=== PATIENT | male | born 1965 | race Caucasian/White ===

== ENCOUNTER 2016-07-03 07:31 | Day surgery (SDC) | payer BC ==
[~2016-07-03] VITALS: Ht 175.3 cm; Wt 81.1 kg
[~2016-07-03 07:31] MED LIST: ASPI-557 PO; EZET10TA PO; LIDOCAINE 1% (10mg/ml) 2ml SDV INJ ONE; LR 1,000 ML IV SCH; MULT-933 PO; OMEG1CAP79 PO; PROPOFOL 500mg 0 ML IV ONE
--- OUTSIDE RECORDS SUMMARY | 2016-07-03 07:35 | XMS REPORT ---
Author Author Zeus Estrada Organization Unknown Address [address], [place] [id number] Phone Care Team Providers Care Bailiff Name Role Phone Fer Wharton PP Unavailable Unavailable Reason for Referral No Reason for Referral was given. History of Present Illness No HPI available. Problems * Normal Routine History And Physical Adult (V70.0); (Active) * Deviated Nasal Septum (Acquired) (470); (Active) * Epistaxis (784.7); (Active) Medication * Mupirocin 2 % External Ointment; APPLY A SMALL AMOUNT WITH A COTTON SWAB TO AFFECTED NOSTRIL 2 TO 3 TIMES DAILY FOR 3 WEEKS; Start Date: 07/14/2012; End Date: (Active) * Multivitamins Oral Capsule; Start Date: 01/18/2010; End Date: 07/14/2012 ( Complete) * PredniSONE 20 MG Oral Tablet; TAKE 3 TABLETS FOR 2 DAYS, 2 TABLETS FOR 2 DAYS , 1 TABLET FOR 2 DAYS, ONE HALF TABLET FOR 2 DAYS; Start Date: 08/21/2011; End Date: 07/14/2012 (Complete) * Desoximetasone 0.25 % External Cream; APPLY SPARINGLY TWICE A DAY TO AFFECTED AREAS; Start Date: 08/21/2011; End Date: 07/14/2012 (Complete) Allergies and Adverse Reactions * No Known Drug Allergies (Active) Past Medical History * No Significant Medical History Procedures Procedure Procedure Date Date Completed Status Gallbladder Surgery - - Active Primary Repair Of Ruptured Achilles Tendon - - Active Family History * Family history of Diabetes Mellitus (V18.0); (Active) * Family history of Reported Family History Of Heart Disease (Active) Social History * Marital History - Currently (Active) * No History of Tobacco Use (Active) * Being A Social Drinker (Active) * Unknown If Ever Smoked ([id number]); (Active) Advance Directives * No Advance Directives available. Encounters * Appointment 07/14/2012
[2016-07-03 07:45] VITALS: Ht 175.3 cm; Wt 81.1 kg
[2016-07-03 07:46] VITALS: BP 122/62; PULSE 61; RESP 16; TEMP 97.9; O2SAT 98
--- NOTE | 2016-07-03 08:21 | ANESPREOP ---
Anesthesia Record Date and Time DATE: 07/03/16 TIME: 08:19 Pre-Op Diagnosis hemocult pos. stool Proposed Surgical Procedure COLONOSCOPY Allergies: Coded Allergies: No Known Allergies (Unverified , 07/03/16) Ht/Wt/BMI Height: 5 ' 9.00 " Weight: 81.100 kg BMI: 26.4 kg/m2 Vital Signs Date Time Temp Pulse Resp B/P Pulse Ox O2 Delivery O2 Flow Rate FiO2 07/03/16 07:46 97.9 61 16 122/62 98 Room Air Medications Inpatient Medications Current Medications Medications (Trade) Dose Ordered Sig/Viet Start Time Stop Time Status Last Admin Dose Admin Lactated Ringer's 1,000 ml @ 50 mls/hr Q20H 06/05/16 07:00 07/02/16 12:20 DC Lactated Ringer's (Lactated Ringers) 1,000 ml @ 50 mls/hr Q20H 07/03/16 07:00 07/03/16 08:06 50 MLS/HR Aspirin (Aspir 81) 81 Mg Tablet.dr, 1 TAB PO DAILY, (Reported) Last Taken: on 06/28/16 Ezetimibe (Zetia) 10 Mg Tablet, 1 TAB PO DAILY, ( Reported) Last Taken: on 06/28/16 Multivitamin (Multi-Day Vitamins) 1 Each Tablet, 1 TAB PO DAILY, (Reported) Last Taken: on 06/28/16 [place]-3/Dha/Epa/Fish Oil (Fish Oil 1,000 mg Softgel ) 1 Each Capsule, 1,000 MG PO DAILY, (Reported) Last Taken: on 06/28/16 Currently on Beta Zeny: No Medical/Surgical History Anesthesia PMH: Denies: *Diabetes, Anesthesia Reactions (NO AIRWAY ISSUES, PTSD ), Arthritis, Cancer, Clotting Problems, Glaucoma, Malignant Hyperthermia, Sleep Apnea Smoking Status: Never smoker Has pt. smoked today?: No Use Chewing Tobacco?: No Second Hand Exposure: No Substance Use Type: does not use Substance last used: unknown Alcohol Intake: rarely Past Surgical History Orthopedic Surgeries: Abdominal Surgeries: Yes - RICHARD Genitourinary Surgeries: Cardiac Surgeries: Endocrine Surgeries: Reproductive Surgeries: Yes - VASECTOMY AND REVERSAL Neurological Surgeries: Ear Surgeries: Nose Surgeries: Throat Surgeries: Other Surgeries: Yes - ACHILES TENDON REPAIR LEFT Anesthesia Adverse Reactions: FOUND none Family Hx of Anesthesia Advers: none Hx of Motion Sickness: No Pertinent Findings EKG Rhythm: Sinus Rhythm Physical Exam Respiratory: Lungs clear Cardiovascular: FOUND Regular rate, rhythm, FOUND No murmur Airway Assessment Mallampati Score: II TMD: 3 Fingerbreadths Neck Extension: Good Overall Assessment: No Airway Concerns ASA: 1 Plan Anesthesia Plan: TIVA Discussion Discussed risks/options/alternatives of anesthesia and questions answered. Patient consents. Nursing pain assessment noted. Present: Spouse Attestation Statement Prior to the delivery of any anesthetic medication, I examined the patient, developed the plan, obtained the patient's consent and discussed the risk and benefits of the procedure with the patient/guardian. ERIC TOLEDO CRNA Jul 03, 2016 08:21
[2016-07-03] MEDS ORDERED: LIDOCAINE 1% (10mg/ml) 2ml SDV ONE (09:21)
[2016-07-03] MEDS ORDERED: PROPOFOL 500mg 50 ML IV ONE (09:21)
[2016-07-03] MEDS ORDERED: FENTANYL 100mcg/2ml INJECTION ONE (09:36)
[2016-07-03] MEDS ORDERED: GLYCOPYRROLATE 0.4mg/2ml INJECTION ONE (09:37)
[2016-07-03] MEDS ORDERED: EPHEDRINE SULFATE 50mg/ml INJECTION ONE (09:42)
[2016-07-03] MEDS ORDERED: DiphenhydrAMINE 50 MG/ML INJECTION ONE (09:42)
[2016-07-03 09:59] VITALS: BP 99/55; PULSE 84; RESP 12; TEMP 98.6; O2SAT 97
--- NOTE | 2016-07-03 10:06 | ANESPO ---
Post-Op Note Date 07/03/16 Time: 10:05 Status Pt Participated in Evaluation: Pt participated in person Vital Signs Date Time Temp Pulse Resp B/P Pulse Ox O2 Delivery O2 Flow Rate FiO2 07/03/16 07:46 97.9 61 16 122/62 98 Room Air Respiratory Function: Airway patent, Regular respirations Cardiovascular Function: Regular pulse Mental Status: Alert/oriented Pain Level Intensity: 0 (0) Hydration: Taking po fluids, IV infusing Complications during Recovery None apparent Post-Anesthesia Notes pt. [email or web address]. well Follow-Up Instructions Instructions Per Surgeon Additional Information none ERIC TOLEDO CRNA Jul 03, 2016 10:06
[2016-07-03 10:13] VITALS: BP 107/68; PULSE 79; RESP 18; O2SAT 97
[2016-07-03 10:29] VITALS: BP 113/75; PULSE 72; RESP 22; O2SAT 98
--- NOTE | 2016-07-03 14:56 | OPNOTEF ---
DATE OF PROCEDURE 07/03/2016 SURGEON Simeon Strong MD PREOPERATIVE DIAGNOSIS Colorectal cancer surveillance/heme positive stool. POSTOPERATIVE DIAGNOSIS Colorectal cancer surveillance/heme positive stool, colonic polyps x 1 located in the ascending colon, mild internal hemorrhoids. PROCEDURE Colonoscopy with polypectomy via hot forceps technique x1. ANESTHESIA TIVA. BRIEF HISTORY/INDICATIONS Jose Rafael is a 50-year-old male who was seen in the office for heme positive stool. He had some testing done at work which picked this up. Jose Rafael has no family history of colon cancer. No other symptoms. Decision was made to proceed with colonoscopy due to the abnormal lab. FINDINGS Upon colonoscopy there was no evidence for angiodysplastic lesions, diverticula or khalif malignancies. The patient was found to have one small polyp within the ascending colon. This polyp was approximately 3-4 mm in size. It was removed via hot forceps technique and sent to pathology. Photographs were obtained for documentation. Patient was also found to have very mild internal hemorrhoids. DESCRIPTION OF PROCEDURE After informed consent was obtained, the patient was brought to the endoscopy suite and placed on the table in the left lateral decubitus position. The patient subsequently underwent total intravenous anesthesia by the nurse air brake rigger per my request. Next, a digital rectal examination was performed; normal sphincter tone. No rectal masses were appreciated. An Olympus colonoscope was inserted in the anus and advanced with the lumen of the colon under direct visualization at all times until the cecum was ascertained. Triangulation of the tenia coli, ileocecal valve and appendiceal lumen were all visualized. The scope was then slowly withdrawn, again while maintaining visualization of the lumen at all times. As stated above, the entire colon was without evidence for angiodysplastic lesions, diverticula or khalif malignancies. The patient was found to have one small colonic polyp within the ascending colon. This polyp was removed via hot forceps technique and sent to pathology. Photographs were taken for documentation. The scope continued to be withdrawn until it was removed from the patient's anal verge. The patient tolerated the procedure without difficulty and was sent back to the preoperative area in stable condition. We will await the biopsy results but my suspicion is that this is a hyperplastic polyp. Jose Rafael will likely get to go 10 years before his next colonoscopy. We will call him with results. DEZ
== END 2016-07-03 10:43 | disposition home or self-care (01) ==
LOC: NSC 07:31
PROVIDERS: ATTEND Family Medicine
DX: D12.2 Benign neoplasm of ascending colon (principal); K64.8 Other hemorrhoids; Z90.49 Acquired absence of other specified parts of digestive tract; Z79.82 Long term (current) use of aspirin; Z79.899 Other long term (current) drug therapy
CPT/HCPCS: 45384; J1200; J2704; J3010; J7120